=== PATIENT | female | born 1990 | race African-American/Black ===

== ENCOUNTER 2019-04-08 08:13 | Emergency (ER) | payer OTHER ==
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
--- NOTE | 2019-04-08 08:53 | ER ---
Nurse's Notes [facility] Name: Yvonne Peterson Age: 28 yrs Sex: Female : 1990 Arrival Date: 04/08/2019 Time: 08:20 Bed 6 Private MD: Diagnosis: Other slipping, tripping and stumbling and falls;Left knee abrasion, generalized muscle strain, right shoulder pain, left thigh pain Presentation: 04/08 08:32 Presenting complaint: Patient states: Slipped and fell, denies hitting head, denies jl7 hitting abdomen, reports right shoulder, groin and leg pain and left knee pain. Transition of care: patient was not received from another setting of care. Onset of symptoms was April 08, 2019. Risk Assessment: Do you want to hurt yourself or someone else? Patient reports no desire to harm self or others. Initial Sepsis Screen: Does the patient meet any 2 criteria? No. Patient's initial sepsis screen is negative. Does the patient have a suspected source of infection? No. Patient's initial sepsis screen is negative. Care prior to arrival: None. 08:32 Method Of Arrival: Ambulatory [facility] 08:32 Acuity: EVANGELINA 3 jl7 Triage Assessment: 08:33 General: Appears in no apparent distress. uncomfortable, Behavior is calm, cooperative, jl7 appropriate for age. Pain: Complains of pain in pelvis, posterior aspect of right shoulder and right leg, right side of groin and left knee Pain currently is 4 out of 10 on a pain scale. Neuro: Level of Consciousness is awake, alert, obeys commands, Oriented to person, place, time, situation. Cardiovascular: Patient's skin is warm and dry. Respiratory: Airway is patent Respiratory effort is even, unlabored, Respiratory pattern is regular, symmetrical. Derm: Skin is dry, Skin is normal, Skin temperature is cool. Musculoskeletal: Range of motion: intact in all extremities. 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 - Social history:: Smoking status: Patient/guardian denies using tobacco. - Ebola Screening: : No symptoms or risks identified at this time. Screenin:40 Abuse screen: Denies threats or abuse. Denies injuries from another. Nutritional jl7 screening: No deficits noted. Tuberculosis screening: No symptoms or risk factors identified. Fall Risk None identified. Assessment: 08:33 General: See triage assessment. jl7 08:40 Reassessment: Dr. Hewitt at bedside. jl7 Vital Signs: 08:33 BP 122 / 70; Pulse 98; Resp 16 S; Pulse Ox 100% on R/A; Weight 60.33 kg (R); Height 5 jl7 ft. 2 in. (157.48 cm) (R); Pain 4/10; 08:33 Body Mass Index 24.33 (60.33 kg, 157.48 cm) jl7 Vitals: 08:53 Heart Tones 156 bpm. jl7 ED Course: 08:20 Patient arrived in ED. mr 08:21 Rahat Hewitt MD is Attending Physician. kdr 08:26 Bettye Martell, RN is Primary Nurse. hb 08:32 Shantanu Arora, NAY is Primary Nurse. jl7 08:33 Triage completed. jl7 08:33 Arm band placed on right wrist. jl7 08:33 Patient has correct armband on for positive identification. Bed in low position. Call jl7 light in reach. Side rails up X 1. Pulse ox on. NIBP on. 08:50 Brenden Patino MD is Referral Physician. kdr 09:10 No provider procedures requiring assistance completed. Patient did not have IV access jl7 during this emergency room visit. Administered Medications: No medications were administered Outcome: 08:52 Discharge ordered by . kdr 09:10 Discharged to OB jl7 09:10 Condition: stable 09:10 Discharge instructions given to patient, family, Instructed on discharge instructions, follow up and referral plans. pt transport to L\T\D for evaluation Demonstrated understanding of instructions, follow-up care. 09:11 Patient left the ED. jl7 Signatures: Rahat Hewitt MD MD kdr Rivera, Mary mr Bettye Martell, RN RN Shantanu Arora RN RN [facility]
[2019-04-08 09:15] VITALS: BP 122/70; O2SAT 100
== END 2019-04-08 09:11 | disposition home or self-care (01) ==
LOC: ER 08:13
DX: O26.893 Other specified pregnancy related conditions, third trimester (principal); Z3A.32 32 weeks gestation of pregnancy; S80.212A Abrasion, left knee, initial encounter; T14.8XXA Other injury of unspecified body region, initial encounter; M25.511 Pain in right shoulder; M79.652 Pain in left thigh; W01.0XXA Fall on same level from slipping, tripping and stumbling without subsequent striking against object, initial encounter; Y93.89 Activity, other specified; Y92.9 Unspecified place or not applicable; Z88.0 Allergy status to penicillin
CPT/HCPCS: 99283

== ENCOUNTER 2019-05-24 22:43 | Inpatient (IN) | payer OTHER ==
[2019-05-24] MEDS ORDERED: OXYTOCIN/LR 20 UNIT/1,000 ML BAG IV SCH (23:45)
[2019-05-24] MEDS ORDERED: Ringers Lactate 1,000 ML IV SCH (23:45)
[2019-05-24] MEDS ORDERED: PROMETHAZINE 25 MG/ML VIAL IV PRN (23:59)
[2019-05-24] MEDS ORDERED: METHYLERGONOVINE 0.2MG/ML AMP IM PRN (23:59)
[2019-05-24] MEDS ORDERED: Ringers Lactate 1,000 ML IV PRN (23:59)
[2019-05-24] MEDS ORDERED: BUTORPHANOL 1 MG/ML INJ IV PRN (23:59)
[2019-05-24] MEDS ORDERED: CARBOPROST TROME 250 MCG/ML IM PRN (23:59)
[2019-05-25] MEDS ORDERED: BUTORPHANOL 1 MG/ML INJ ONE (00:04)
[2019-05-25] MEDS ORDERED: PROMETHAZINE 25 MG/ML VIAL ONE (00:04)
[2019-05-25 00:27] LABS: Absolute Lymphocytes (CBC) 1.9 K/uL (0.7-4.9); Basophils % 0.4 % (0-1.3); Hematocrit 29.2 % (36.0-45.0); Lymphocytes % 18.2 % (15.3-44.8); MPV 8.2 fL (7.6-11.3); RBC Red Blood Cell Count 3.66 M/uL (3.86-4.86)
[2019-05-25] MEDS ORDERED: LIDOCAINE 1% MPF 30 ML VIAL ONE (00:35)
[2019-05-25 00:48] VITALS: BMI 27.2
--- NOTE | 2019-05-25 00:52 | PREOPHP ---
Date of Admission: 05/24/2019 History Of Present Illness: Ms. Peterson is a 29-year-old black female, 2, para 1-0-0-1, at approximately 39 weeks gestation. She has been followed by me during this without sign ificant complaint. She presents with complaints of contractions, noted to be 3 cm on admission, with in 1 hour was 5 cm. Past Medical History: Please see record. Family History: Please see record. Review of Systems: She reports no recent cough, cold, fever, or chills. She had nausea on the way of the hospital, thre w up 1 time with a contraction discomfort. She denies any breast lumps. She denies any bowel or nils dder issues. Physical Examination: General: Reveals pleasant black female in moderate discomfort. Neck: Supple without adenopathy or thyromegaly. Lungs: Clear. Cardiac: Regular rate and rhythm without murmurs. Breasts: Not examined. Abdomen: Estimated weight of 7+ to 8 pounds. Pelvic: Cervix now noted to be vertex presentation, 5 cm dilated. Extremities: No cyanosis, clubbing, or edema. Impression: Term , active labor. Plan: Patient will be admitted for delivery. She request IV analgesia at this time. MARCIO/EZEKIEL Voice ID: [id number]
[2019-05-25 02:39] LABS: Urine Appearance CLEAR; Urine Bilirubin NEGATIVE (NEG); Urine Blood NEGATIVE (NEG); Urine Color YELLOW; Urine Glucose NEGATIVE (NEG); Urine Protein NEGATIVE (NEG); Urine pH 6.5 (5.0-7.0)
[2019-05-25 02:41] LABS: Urine Microscopic Reflex NO UMIC
[2019-05-25] MEDS ORDERED: FENTANYL CITR 100 MCG/2 ML IV ONE (02:53)
[2019-05-25] MEDS ORDERED: ROPIVACAINE HCL 100 ML IV PRN (02:53)
[2019-05-25] MEDS ORDERED: ROPIVACAINE HCL 0.2% 20ML AMP SQ ONE (02:57)
[2019-05-25] MEDS ORDERED: EPHEDRINE SULF 50 MG/ML VIAL ONE (04:07)
[2019-05-25] MEDS ORDERED: ONDANSETRON 4 MG (ODT) TAB PO PRN (05:22)
[2019-05-25] MEDS ORDERED: METHYLERGONOVINE 0.2MG/ML AMP IM PRN (05:22)
[2019-05-25] MEDS ORDERED: CARBOPROST TROME 250 MCG/ML IM PRN (05:22)
[2019-05-25] MEDS ORDERED: ACETAMINOPHEN 500 MG TAB PO PRN (05:22)
[2019-05-25] MEDS ORDERED: IBUPROFEN 200 MG TAB PO PRN (05:22)
[2019-05-25] MEDS ORDERED: METHYLERGONOVINE 0.2 MG TAB PO PRN (05:22)
--- NOTE | 2019-05-25 05:26 | P.BOP ---
Preoperative diagnosis: 39 week , labor Postoperative diagnosis: Delivery viable male infant Primary procedure: SCVD male Estimated blood loss: 300 Anesthesia: epidural Complications: None Transferred to: Other (274) Condition: Good
[2019-05-25] MEDS ORDERED: OXYTOCIN/LR 20 UNIT/1,000 ML BAG IV SCH (06:00)
[2019-05-25 23:01] LABS: RPR (Rapid Plasma Reagin) NON-REACT (NON-REACT)
--- NOTE | 2019-05-26 03:13 | DN ---
Surgeon: Brenden Patino MD Yvonne is a 29-year-old black female, 2, para 1-0-0-1, at 39 weeks' gestation, admitted in labor. She had a first stage of labor of approximately 6 hours, second stage of labor of 5 minutes, delivered by spontaneous controlled vaginal delivery with epidural anesthesia, male infant 9 and 9. After delayed cord clamping, infant was placed on mother's upper abdomen. Infant weighed 7 pounds 12 ounces. Cord blood was obtained. Placenta was spontaneously expelled, appeared to be intact. Intrauterine examination revealed no retained placental fragments. Patient suffered no perineal lacerations, received 1 mg of Stadol and 1 dose of Phenergan 12.5 mg for analgesia during her labor course prior to placement of epidural catheter. Estimated total blood loss was 300 cc. MARCIO/EZEKIEL Voice ID: [id number] Report ID: [id number] BRENDON
[2019-05-26 07:19] VITALS: BP 122/62; TEMP 97.6
--- NOTE | 2019-05-27 08:29 | DS ---
Date of Discharge: 05/26/2019 Ms. Peterson is a 29-year-old black female, 2, para 1-0-0-1, [facility] admitted in active labor. She delivered 7 pounds 12 ounce male , 9 and 9 and wa s dismissed on first day. Lab work included an admission hemoglobin and hematocrit of 9.6 and 29.2, dismissal of 26.8. She is Rh positive blood type and rubella immune. She is to continue taking her iron and vitamins, to be seen back in my office in 1 week. MARCIO/EZEKIEL Voice ID: [id number] Report ID: [id number]
[2019-05-28 02:35] LABS: HBsAG Nonreactive (Nonreactive)
== END 2019-05-26 11:20 | disposition home or self-care (01) | DRG 807 ==
LOC: L&D 22:43 → 2ND-WC 23:56
PROVIDERS: ADMIT Specialist; ATTEND Specialist
PROC: 10E0XZZ Delivery of Products of Conception, External Approach (ICD-10-PCS; principal; 2019-05-25)
PROC: 10907ZC Drainage of Amniotic Fluid, Therapeutic from Products of Conception, Via Natural or Artificial Opening (ICD-10-PCS; 2019-05-25)
DX: O80 Encounter for full-term uncomplicated delivery (principal); Z37.0 Single live birth; Z3A.39 39 weeks gestation of pregnancy; Z28.20 Immunization not carried out because of patient decision for unspecified reason
CPT/HCPCS: 36415; 81003; 85014; 85025; 86592; 86901; 87340; J0595; J2210; J2550; J2590; J2795; J3010; J7120

== ENCOUNTER 2020-06-03 20:19 | Observation (INO) | payer OTHER ==
[2020-06-03 21:42] LABS: Absolute Lymphocytes (CBC) 2.2 K/uL (0.7-4.9); Basophils % 1.2 % (0-1.3); Hematocrit 37.8 % (36.0-45.0); Lymphocytes % 26.2 % (15.3-44.8); MPV 8.4 fL (7.6-11.3); RBC Red Blood Cell Count 4.35 M/uL (3.86-4.86)
[2020-06-03 21:48] LABS: Urine Blood NEGATIVE (NEG); Urine Glucose NEGATIVE (NEG); Urine Protein NEGATIVE (NEG); Urine Specific Gravity 1.015 (1.005-1.030)
[2020-06-03 21:48] LABS: Protime INR 0.96
[2020-06-03 21:56] LABS: BUN Blood Urea Nitrogen 11 mg/dL (7-18); Bicarbonate 26 mmol/L (21-32); Glucose Level 93 mg/dL (74-106); Potassium 3.7 mmol/L (3.5-5.1); Sodium Level 140 mmol/L (136-145)
[2020-06-03 22:02] LABS: Barbiturates NEGATIVE (NEGATIVE); Benzodiazepines NEGATIVE (NEGATIVE); Cocaine NEGATIVE (NEGATIVE); METHAMPHETAM NEGATIVE (NEGATIVE); Methadone NEGATIVE (NEGATIVE); Opiates NEGATIVE (NEGATIVE); Phencyclidine NEGATIVE (NEGATIVE); THC Cannibis NEGATIVE (NEGATIVE)
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
--- NOTE | 2020-06-03 22:25 | ER ---
Nurse's Notes [facility] Name: Yvonne Peterson Age: 30 yrs Sex: Female : 1990 Arrival Date: 06/03/2020 Time: 20:21 Bed 18 Private MD: Gerson Barry Diagnosis: Cerebral Vascular Accident Presentation: 06/03 20:40 Acuity: EVANGELINA 3 sg 20:40 Method Of Arrival: Ambulatory sg 20:40 Chief complaint: Spouse and/or significant other states: Shes just not been feeling sg good, worse today. She gets really dizzy when she gets up, and shes barely able to walk. She just says shes not feeling good, doesn't feel normal. Denies N/V unsure of any fever at home, reports feeling chills. Coronavirus screen: Client denies travel out of the [place] in the last 14 days. At this time, the client does not indicate any symptoms associated with coronavirus-19. Ebola Screen: Patient negative for fever greater than or equal to 101.5 degrees Fahrenheit, and additional compatible Ebola Virus Disease symptoms Patient denies exposure to infectious person. Patient denies travel to an Ebola-affected area in the 21 days before illness onset. No symptoms or risks identified at this time. Initial Sepsis Screen: Does the patient meet any 2 criteria? HR > 90 bpm. No. Patient's initial sepsis screen is negative. Does the patient have a suspected source of infection? No. Patient's initial sepsis screen is negative. Risk Assessment: Do you want to hurt yourself or someone else? Patient reports no desire to harm self or others. Onset of symptoms was June 03, 2020. Care prior to arrival: None. Mechanism of Injury: No Mechanism of Injury. Transition of care: patient was not received from another setting of care. Triage Assessment: 20:42 General: Appears in no apparent distress. comfortable, well groomed, well developed, sg well nourished, Behavior is cooperative, quiet. Pain: Denies pain. Neuro: Level of Consciousness is awake, alert, obeys commands, Oriented to person, place, situation, Speech is normal, slow to respond. Neuro: Reports tingling to bilateral feet. Respiratory: Airway is patent Respiratory effort is even, unlabored, Respiratory pattern is regular, symmetrical. Derm: Skin is intact, is healthy with good turgor, Skin is dry, Skin is normal, Skin temperature is warm. Musculoskeletal: Circulation, motion, and sensation intact. Range of motion: intact in all extremities. 21:50 General: Appears comfortable, Behavior is calm, cooperative. Pain: Denies pain. 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 - Social history:: Smoking status: Patient denies any tobacco usage or history of. Screenin:50 Abuse screen: Denies threats or abuse. Denies injuries from another. Nutritional rv screening: No deficits noted. Tuberculosis screening: No symptoms or risk factors identified. Fall Risk None identified. Assessment: 06/04 00:20 Reassessment: FAMILY AND PATIENT UPDATED. AWAITING CALL BACK FROM [address] [place] [address]. rv Vital Signs: 06/03 21:47 BP 128 / 82; Pulse 79; Resp 17; Temp 98.3; Pulse Ox 100% ; Weight 60.06 kg (M); rv 06/04 00:19 BP 111 / 72; Pulse 70; Resp 16; Temp 98; Pulse Ox 99% on R/A; rv Chandrika Coma Score: 00:19 Eye Response: spontaneous(4). Verbal Response: oriented(5). Motor Response: obeys rv commands(6). Total: 15. NIH Stroke Scale Scores: 06/03 21:45 NIHSS Score: 2 rv 22:14 NIHSS Score: 2 7 ED Course: 20:21 Patient arrived in ED. ag5 20:21 Gerson Barry MD is Private Physician. ag5 20:27 Renaldo Peng MD is Attending Physician. mh7 20:40 Triage completed. sg 20:40 Arm band placed on. sg 21:00 Tyrone Benito, NAY is Primary Nurse. rv 21:28 CT Stroke Brain w/o Contrast In Process Unspecified. EDMS 21:34 Stroke CXR 1 View In Process Unspecified. EDMS 21:40 Inserted saline lock: 20 gauge in right antecubital area, using aseptic technique. rv Blood collected. 21:40 Initial lab(s) drawn, by ca, sent to lab. rv 21:50 Patient has correct armband on for positive identification. Pulse ox on. NIBP on. rv 22:23 Mayo Rosales DO is Hospitalizing Provider. [facility] 06/04 00:20 No provider procedures requiring assistance completed. IV is patent, with fluids rv infusing freely, Patient admitted, IV remains in place. Administered Medications: 06/03 22:48 Drug: Aspirin Chewable Tablet 324 mg Route: PO; rv 06/04 00:22 Follow up: Response: No adverse reaction rv 06/03 22:48 Drug: foLIC Acid 1 mg Route: PO; rv 06/04 00:21 Follow up: Response: No adverse reaction rv Outcome: 06/03 22:25 Decision to Hospitalize by Provider. [facility] 06/04 00:20 Admitted to Med/surg accompanied by nurse, via wheelchair, room 221, Other SBAR, EKG rv Report called to ELSIE TEE Condition: good Instructed on the need for admit. 00:32 Patient left the ED. rv NIH Stroke Scale - NIH Stroke Score Date: 06/03/2020 Time: 21:45 Total Score = 2 1a. Level of Consciousness (LOC) - 0(Alert) 1b. Level of Consciousness (LOC) (Year \T\ Age) - 0(Both) 1c. LOC Commands (Open \T\ Closes Eyes/Deburrer) - 0(Both) 2. Best Gaze (Lateral Gaze Paresis) - 0(Normal) 3. Visual Field Loss - 0(No visual loss) 4. Facial Palsy - 0(Normal) 5a. Left Arm: Motor (10-second hold) - 0(No drift) 5b. Right Arm: Motor (10-second hold) - 0(No drift) 6a. Left Leg: Motor (5-second hold - always test supine) - 1(Drift) 6b. Right Leg: Motor (5-second hold - always test supine) - 0(No drift) 7. Limb Ataxia (finger/nose \T\ heel/sarabia - test with eyes open) - 0(Absent) 8. Sensory Loss (pinprick arms/legs/face) - 1(Mild to moderate loss) 9. Best Language: Aphasia (description/naming/reading) - 0(No aphasia) 10. Dysarthria (speech clarity - read or repeat words) - 0(Normal) 11. Extinction and Inattention (visual/tactile/auditory/spatial/personal) - 0(No abnormality) Initials: andrew NIH Stroke Scale - NIH Stroke Score Date: 06/03/2020 Time: 22:14 Total Score = 2 1a. Level of Consciousness (LOC) - 0(Alert) 1b. Level of Consciousness (LOC) (Year \T\ Age) - 0(Both) 1c. LOC Commands (Open \T\ Closes Eyes/Deburrer) - 0(Both) 2. Best Gaze (Lateral Gaze Paresis) - 0(Normal) 3. Visual Field Loss - 0(No visual loss) 4. Facial Palsy - 0(Normal) 5a. Left Arm: Motor (10-second hold) - 0(No drift) 5b. Right Arm: Motor (10-second hold) - 0(No drift) 6a. Left Leg: Motor (5-second hold - always test supine) - 0(No drift) 6b. Right Leg: Motor (5-second hold - always test supine) - 0(No drift) 7. Limb Ataxia (finger/nose \T\ heel/sarabia - test with eyes open) - 1(Present in one limb) 8. Sensory Loss (pinprick arms/legs/face) - 1(Mild to moderate loss) 9. Best Language: Aphasia (description/naming/reading) - 0(No aphasia) 10. Dysarthria (speech clarity - read or repeat words) - 0(Normal) 11. Extinction and Inattention (visual/tactile/auditory/spatial/personal) - 0(No abnormality) Initials: [facility] Signatures: Dispatcher [employer] Kris Cordero RN RN Tyrone Benito RN RN rv [place], Ajare 5 Renaldo Peng MD MD [facility]
[2020-06-03] MEDS ORDERED: FOLIC ACID 1 MG TABLET ONE (22:53)
[2020-06-03] MEDS ORDERED: ASPIRIN 81 MG CHEWABLE TABLET ONE (22:53)
--- NOTE | 2020-06-03 23:57 | P.HP ---
Certification for Inpatient Patient admitted to: Observation With expected LOS: <2 Midnights Patient will require the following post-hospital care: None Practitioner: I am a practitioner with admitting privileges, knowledge of patient current condition, hospital course, and medical plan of care. Services: Services provided to patient in accordance with Admission requirements found in Title 42 Section 412.3 of the Code of Federal Regulations <Marlo Hicks - Last Filed: 06/03/20 23:52> Patient admitted to: Observation <Mayo Rosales - Last Filed: 06/04/20 08:49> Patient History Date of Service: 06/03/20 Primary Care Provider: Dr. Barry Reason for admission: TIA/CVA History of Present Illness: 30-year-old Afro-Chinese female with no significant past medical history reports that around 1700 today she was driving her car when she had an episode where she felt like she may have lost consciousness and woke up in another [place]. Patient reports that she has also Feeling funny and having trouble verbally responding to her daughter. Patient reports that she called her mother on the phone who also noticed that her speech was different, slowed, seemed like she is having trouble coming up with the words. Patient made it back to her house where her also noticed these changes and brought her to the emergency department. Upon arrival to the emergency department code stroke was called and patient was taken for stat CT head. CT head was without acute findings, patient was outside the window for t-PA. Exam in the emergency department patient was noted to have mild left lower extremity drift and some borderline sensory changes which she stated has improved the last few hr of numbness to the left arm and leg. Labs unremarkable. ED provider discuss case with neurology who wishes to keep patient in the hospital for further evaluation and management. When I saw the patient in the emergency department she is awake, alert, oriented x3. Speech had improved greatly and was about back at baseline per family. Patient upper extremities equal and strong, questionable mild drift of the left lower extremity, sensation equal bilaterally. Patient passed swallow screen and was given aspirin and folic acid in the emergency department, patient will be admitted for further evaluation and management. - Past Medical/Surgical History -: none -: NVD 06/2012 Psychosocial/ Personal History: Patient lives at home with her and family - Family History Mother -: Lung disease - Social History Smoking Status: Never smoker Alcohol use: Yes CD- Drugs: No Caffeine use: No Place of Residence: Home <Marlo Hicks - Last Filed: 06/03/20 23:52> Date of Service: 06/04/20 Home medications list reviewed: Yes - Past Medical/Surgical History Diabetic: No <Mayo Rosales - Last Filed: 06/04/20 08:49> Allergies Penicillins Allergy (Mild, Verified 07/04/12 19:52) Rash Review of Systems 10-point ROS is otherwise unremarkable Neurological: Weakness, Numbness, Change in Speech, As per HPI <Marlo Hicks - Last Filed: 06/03/20 23:52> Physical Examination - Physical Exam General: Alert, In no apparent distress, Oriented x3 HEENT: Atraumatic, Normocephalic, PERRLA, Mucous membr. moist/pink Neck: Supple Respiratory: Clear to auscultation bilaterally, Normal air movement Cardiovascular: Regular rate/rhythm, Normal S1 S2 Capillary refill: <2 Seconds Gastrointestinal: Normal bowel sounds Musculoskeletal: No contractures, No erythema, No tenderness Integumentary: No significant lesion, No tenderness/swelling, No erythema Neurological: Normal gait, Normal speech, Normal tone, Sensation intact, Cranial nerves 3-12 intact, Normal affect, Abnormal strength (Mild left lower extremity drifting) - Studies Laboratory Data (last 24 hrs) 06/03/20 21:30: PT 11.3, INR 0.96, APTT 25.7 06/03/20 21:30: WBC 8.3, Hgb 12.6, Hct 37.8, Plt Count 342 06/03/20 21:30: Sodium 140, Potassium 3.7, BUN 11, Creatinine 0.87, Glucose 93 <Marlo Hicks - Last Filed: 06/03/20 23:52> - Studies Laboratory Data (last 24 hrs) 06/03/20 21:30: PT 11.3, INR 0.96, APTT 25.7 06/03/20 21:30: WBC 8.3, Hgb 12.6, Hct 37.8, Plt Count 342 06/03/20 21:30: Sodium 140, Potassium 3.7, BUN 11, Creatinine 0.87, Glucose 93 <Mayo Rosales - Last Filed: 06/04/20 08:49> Assessment and Plan - Plan Assessment Ischemic CVA vs. TIA Plan Ischemic CVA vs. TIA: Admit on telemetry floor. Daily aspirin, statin, folic acid. Check lipid panel, A1c, thyroid panel with morning labs. Q.4h neuro checks. Physical and speech therapy evaluation, neurology evaluation. DVT prophylaxis Lovenox 40 mg subcutaneous once daily. Discharge Plan: Home Plan to discharge in: 24 Hours - Advance Directives Does patient have a Living Will: No Does patient have a Durable POA for Healthcare: No - Code Status/Comfort Care Code Status Assessed: Yes Critical Care: No Time Spent Managing Pts Care (In Minutes): 55 <Marlo Hicks - Last Filed: 06/03/20 23:52> - Plan Case discussed in detail with nurse practitioner. Agree with evaluation, assessment and plan of care. Patient reported chronic headaches. Suspect migraine headache. Suspect left-sided paresthesias related to migraine- sequelae. Await neurology evaluation. Not able to perform MRI, echocardiogram today. Patient may be able to be discharged with follow up with neurology as soon as Saturday along with MRI, echocardiogram with bubble study, and carotid Doppler. Await recommendations by Neurology. Please see progress note for details. <Mayo Rosales - Last Filed: 06/04/20 08:49>
[2020-06-04 01:12] VITALS: O2SAT 100; BMI 24.5
[2020-06-04] MEDS ORDERED: ACETAMINOPHEN 500 MG TAB PO PRN (01:13)
[2020-06-04] MEDS ORDERED: ONDANSETRON 4 MG/2 ML VIAL IV PRN (01:13)
[2020-06-04] MEDS ORDERED: MELATONIN 5 MG TABLET PO PRN (01:13)
[2020-06-04 05:50] LABS: Absolute Lymphocytes (CBC) 2.5 K/uL (0.7-4.9); Hematocrit 35.7 % (36.0-45.0); MPV 8.5 fL (7.6-11.3); RBC Red Blood Cell Count 4.11 M/uL (3.86-4.86)
[2020-06-04 06:12] LABS: BUN Blood Urea Nitrogen 10 mg/dL (7-18); Bicarbonate 25 mmol/L (21-32); Glucose Level 89 mg/dL (74-106); HDL Cholesterol 64 mg/dL (40-60); LDL Cholesterol, Calculated 122 (<130); Magnesium 2.1 mg/dL (1.8-2.4); Potassium 3.7 mmol/L (3.5-5.1); Sodium Level 141 mmol/L (136-145)
[2020-06-04] MEDS: ENOXAPARIN 40 MG/0.4 ML SQ SCH (08:49)
[2020-06-04] MEDS: FOLIC ACID 1 MG TABLET PO SCH (08:50)
[2020-06-04] MEDS: ASPIRIN EC 81 MG TAB PO SCH (08:50)
--- NOTE | 2020-06-04 08:56 | P.PN ---
Subjective Date of Service: 06/04/20 Primary Care Provider: Dr. Barry Chief Complaint: TIA/CVA Subjective: Improving (No further weakness to the left side. Patient still reports some numbness) Physical Examination - Vital Signs Temperature: 97.5 F Blood Pressure: 109/64 Pulse: 67 Respirations: 18 Pulse Ox (%): 100 - Physical Exam General: Alert, In no apparent distress, Oriented x3, Cooperative HEENT: Atraumatic, Mucous membr. moist/pink Neck: Supple Respiratory: Clear to auscultation bilaterally, Normal air movement Cardiovascular: Normal pulses, Regular rate/rhythm Gastrointestinal: Normal bowel sounds, Soft and benign, Non-distended, No masses, No rebound, No guarding Neurological: Normal speech, Normal strength at 5/5 x4 extr, Normal tone, Normal affect, Other (no significant numbness. Some mild numbess to the left lower ext when walking. ) - Studies Laboratory Data (last 24 hrs) 06/03/20 21:30: PT 11.3, INR 0.96, APTT 25.7 06/03/20 21:30: WBC 8.3, Hgb 12.6, Hct 37.8, Plt Count 342 06/03/20 21:30: Sodium 140, Potassium 3.7, BUN 11, Creatinine 0.87, Glucose 93 Medications List Reviewed: Yes Assessment & Plan Discharge Plan: Home Plan to discharge in: 24 Hours Physician Review Additional Text: Impression: Left-sided paresthesia with history of chronic headache suspect migraine headache related versus TIA Mitral regurgitation Hyperlipidemia Plan: Left-sided paresthesia with history of chronic headache suspect migraine headache related versus TIA: Patient reports recent history of chronic headaches over the last year. Patient describes migraine related headaches. This may be a sequelae of her symptoms. Need to rule out TIA. Not able to do MRI, echocardiogram over the weekend. Anticipate possible discharge with aspirin, folic acid and statin medication. Consider MRI stroke protocol brain, echocardiogram and carotid Doppler on Saturday with close follow-up. Will discuss case further with Neurology after his evaluation. Await recommendation.Patient may also require medication for migraine headaches. Await Neurology recommendations. Mitral regurgitation: Patient reports history of mitral regurgitation. Seen by Cardiology in the past with Holter monitor is well. Will need to repeat echocardiogram with bubble study. This can possibly be done as an outpatient. Await evaluation by neurology. Hyperlipidemia: Total cholesterol slightly elevated. LDL 122. HDL 64. Patient on statin medication. Await recommendations by Neurology. Time Spent Managing Pts Care (In Minutes): 55
[2020-06-04] MEDS ORDERED: POTASSIUM CL SA 10 MEQ TAB PO ONE (09:00)
--- NOTE | 2020-06-04 09:27 | RAD REPORT ---
EXAM DESCRIPTION: RAD - Chest Single View - 06/03/2020 9:34 pm CLINICAL HISTORY: possible CVA, Stroke protocol chest film TECHNIQUE: AP portable chest image was obtained 06/03/2020 9:34 pm . FINDINGS: Lungs are clear. Heart and vasculature are normal. No measurable pleural effusion and no p neumothorax. No acute bony abnormality seen. No acute aortic findings suspected. IMPRESSION: No acute cardiopulmonary process.
[2020-06-04] MEDS ORDERED: INFLUENZA VACCINE (for 3y+) 0.5 ML DOSE IMVAC ONE (12:00)
--- NOTE | 2020-06-04 17:48 | RAD REPORT ---
EXAM DESCRIPTION: CT - Ct Stroke Brain Wo Cont - 06/04/2020 8:36 am ADDENDUM #1 Addendum: I discussed these critical findings with Dr. Peng on 06/03/2020 at 2145 hours central slick pedro Electronically signed by: Armani Swanson 06/04/2020 4:10 PM [employer] End of Addendum EXAM DESCRIPTION: Ct Stroke Brain Wo Cont CLINICAL HISTORY: Numbness/tingling;Aphasia;Dizziness COMPARISON: None Available TECHNIQUE: Contiguous axial CT images of the head were obtained. Coronal and sagittal reconstructions were created from the axial data. This exam was performed according to our departmental dose-optimization program, which includes autom ated exposure control, adjustment of the mA and/or kV according to patient size and/or use of iterati ve reconstruction technique. FINDINGS: There is no evidence of acute mass, mass effect, midline shift or hemorrhage. The ventricl es and extra-axial CSF spaces are unremarkable. The brain parenchyma appears normal for the patient's age. No acute abnormalities of the bones is seen. IMPRESSION: No acute intracranial abnormality. Electronically signed by: Armani Swanson 06/03/2020 9:36 PM [employer]ING ENGINEER Due to temporary technical issues with the PACS/Fluency reporting system, reports are being signed by the in house radiologists without review as a courtesy to insure prompt reporting. The interpreting radiologist is fully responsible for the content of the report.
--- NOTE | 2020-06-04 18:48 | CON ---
Reason For Consultation: Consulted called by Dr. Rosales because of possible stroke versus TIA. History Of Present Illness: Ms. Peterson is a 30-year-old right-handed patient with no clear known past medical history until recent diagnosis of dyslipidemia with elevated LDL. Yesterday evening around 5, she was driving home when she suddenly felt funny at head and apparently lost cons ciousness and woke up in another [place]. She had her children in the car. She was very scared and carl ve home. She apparently had slurred speech and was somewhat disoriented. She was brought into [facility], had head CT scan that was negative, blood work was negative. She said she did not porter ve any tongue biting or loss of bowel or bladder control. She was admitted for stroke workup. Due t o the absence of MRI, she did not have the MRI, but she was admitted for possible MRI on Saturday. Lab oratory studies showed a normal complete blood count with differential, normal coagulation panel. Ch emistries remarkable for very slightly elevated chloride, otherwise normal, and her panel of choleste rol showed a total cholesterol 211, LDL cholesterol 122, and HDL cholesterol was 64. TSH normal. Ur inalysis showed trace esterase and urine drug screen was negative. She was placed on aspirin 81 mg, Lipitor 40 mg at bedtime, folic acid 1 mg daily, and DVT prophylaxis with Lovenox 40 mg subcutaneousl y daily, and she had melatonin for sleep. The patient states she does have a history of headaches and she however is not clear if she had a hea dache during this period. Her mother does have headaches. The mother was in the room and provided i nformation, but she could not clearly length the episode with headache. Past Medical History: As indicated. She did have a normal baby born by vaginal delivery on 06/2012 and year ago, she had an epidural for her last child. Social History: Occasional alcohol use, but no IV drugs or smoking. Family History: Positive for migraines in mother, lung disease in mother. Allergies: PENICILLIN. Medications: As indicated above. Review of Systems: She denies any recent fevers or chills, nausea, vomiting, myalgias, arthralgias, rash, headache, weig ht change. No psychiatric issues or gastrointestinal issues aside from mentioned with migraines. Khanh quezada does have some lower back pain. 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 She did get up and ambulate to the bathroom and had no dif ficulty there. Physical Examination: Vital Signs: Blood pressure 109/62, pulse 67 to 92, respiratory rate 16 to 20, temperature 97.9, oxy gen saturation 99%. Weight 134 pounds, height 5 feet 2 inches, BMI 24.5. General: Ms. Russell is resting in bed. She is in no acute distress. HEENT: She is normocephalic, atraumatic. Sclerae anicteric. Oropharynx is pink and moist. Neck: Supple. Chest: Clear. Heart: Regular. Extremities: No edema, cyanosis, or clubbing. Neurologic: Alert, oriented to person, place, time, and situation. She follows all commands appropr iately. Cranial nerves 2 through 12 are intact by exam. Motor examination intact in the upper and l ower extremities proximally and distally with 5/5 strength. Sensory exam intact to light touch, pinp khoi, and temperature in the arms and legs. Coordination intact in upper and lower extremities. She has good stance and stride. Assessment: Ms. Peterson is a 30-year-old patient with a paroxysmal episode of apparent loss of consciou sness. There were some left-sided facial tingling and numbness associated, but that all resolved wit hin about 12 to 14 hours. Her differential diagnosis includes complicated migraine, complex partial seizures, and transient ischemic attack. Plan: 1.Brain MRI with MRA on Saturday, MRA of head and neck. 2.Routine electroencephalogram. 3.Folic acid 1 mg daily, Lipitor as indicated 4 mg daily, aspirin 81 mg daily, and make sure that khanh quezada is well hydrated. She is told to drink 8 to 10 glasses of water daily. 4.She is told about regular exercise, at least 30 minutes of brisk activity on a daily basis. 5.Once the studies are done, she may be discharged home and follow up with Dr. Pfeiffer in clinic 1 month later. VIK/EZEKIEL Voice ID: [id number] Report ID: [id number]
[2020-06-04] MEDS: ATORVASTATIN 40 MG TAB PO SCH (20:49)
--- NOTE | 2020-06-05 07:44 | EKG ---
Test Date: 2020-06-03 Test Time: 21:37:00 [employer] Caretaker: RV MEASUREMENT RESULTS: Intervals: Rate: 92 MD: 126 QRSD: 86 QT: 358 QTc: 442 Elmo: P: 63 MD: 126 QRS: 66 T: 29 INTERPRETIVE STATEMENTS: Normal sinus rhythm Normal ECG No previous ECG available for comparison Electronically Signed On 06-05-20 07:40:53 HEAD OF [employer]ALENT MANAGEMENT by Chepe Rascon
[2020-06-05] MEDS: FOLIC ACID 1 MG TABLET PO SCH (08:10)
[2020-06-05] MEDS: ASPIRIN EC 81 MG TAB PO SCH (08:10)
[2020-06-05] MEDS: ENOXAPARIN 40 MG/0.4 ML SQ SCH (08:10)
--- NOTE | 2020-06-05 09:03 | P.PN ---
Subjective Date of Service: 06/05/20 Primary Care Provider: Dr. Barry Chief Complaint: TIA/CVA Subjective: Other (Further history obtained. Patient had reported loss of consciousness. Since yesterday numbness to the left side has improved. Still with some mild numbness to the left lower extremity. She reports some improvement with ataxia as well.) Physical Examination - Vital Signs Temperature: 97 F Blood Pressure: 114/67 Pulse: 76 Respirations: 20 Pulse Ox (%): 100 - Physical Exam General: Alert, In no apparent distress, Oriented x3, Cooperative HEENT: Atraumatic Neck: Supple Respiratory: Clear to auscultation bilaterally, Normal air movement Cardiovascular: Normal pulses, Regular rate/rhythm Gastrointestinal: Normal bowel sounds, No tenderness, No masses, No rebound, No guarding Musculoskeletal: No erythema, No tenderness, No warmth Neurological: Normal speech, Normal strength at 5/5 x4 extr, Normal tone, Other (Numbness to the lower extremity when walking. Ataxia is less today. Sensation improved.) - Studies Medications List Reviewed: Yes Assessment & Plan Discharge Plan: Home Plan to discharge in: 24 Hours Physician Review Additional Text: Impression: Loss of consciousness, Left-sided paresthesia, ataxia with history of chronic headache,, needs further inpatient workup to rule out CVA/TIA versus seizure disorder versus complex migraine Mitral regurgitation Hyperlipidemia Plan: Loss of consciousness, Left-sided paresthesia, ataxia with history of chronic headache: Case discussed with Neurology. No loss of conscious is noted Overnite. Left-sided paresthesia improved. Still with minimal ataxia and paresthesia to the left lower extremity when walking. Will continue with physical therapy as recommended by a neurology patient needs to complete inpatient workup with EEG, stroke protocol MRI, echocardiogram with bubble study and carotid Doppler. Will continue with aspirin, folic acid and statin medication. Await further recommendations from Neurology after workup. I will turn the service over to the hospitalist team tomorrow. I will go over plan of care with him. Mitral regurgitation: Patient reports history of mitral regurgitation. Seen by Cardiology in the past with Holter monitor is well. Will try to obtain records from cardiology. Will need to repeat echocardiogram with bubble study. Continue with Neurology recommendations. Hyperlipidemia: Total cholesterol slightly elevated. LDL 122. HDL 64. Patient on statin medication. Continue with Neurology recommendations.
--- NOTE | 2020-06-05 11:58 | RAD REPORT ---
EXAM DESCRIPTION: USCarotid Artery Cvfvakxaj99/15/2020 11:14 am CLINICAL HISTORY: Left-sided numbness COMPARISON: None FINDINGS: The velocity of the right internal carotid artery equals 125 cm/sec. The right ICA/CCA rat io 1. The velocity of the left internal carotid artery equals 127 cm/sec. The left ICA/CCA ratio 1. Plaque is not visualized within the carotid arteries The vertebral arteries demonstrate antegrade flow IMPRESSION: Unremarkable exam NASCET criteria used. Mild 0-49% stenosis Moderate 50-69% stenosis Severe 70-99% stenosis
[2020-06-05] MEDS: ATORVASTATIN 40 MG TAB PO SCH (21:11)
[2020-06-06] MEDS: ENOXAPARIN 40 MG/0.4 ML SQ SCH (08:20)
[2020-06-06] MEDS: FOLIC ACID 1 MG TABLET PO SCH (08:20)
[2020-06-06] MEDS: ASPIRIN EC 81 MG TAB PO SCH (08:20)
--- NOTE | 2020-06-06 13:38 | RAD REPORT ---
EXAM DESCRIPTION: MRI - Brain Wo Cont - 06/06/2020 12:22 pm CLINICAL HISTORY: LOSS OF CONSCIOUSNESS, ATAXIA COMPARISON: CT June 03, 2020 TECHNIQUE: Axial, sagittal, and coronal magnetic images of the brain were obtained. Contrast was not requested FINDINGS: No abnormal signal is present within the brain. Diffusion-weighted/ADC mapping does not reveal evidence of acute infarction. The ventricles are normal caliber. An extra-axial fluid collection is not present Fluid within the sinuses/mastoids is not noted. Chronic maxillary and ethmoid sinusitis. IMPRESSION: No acute abnormality is displayed
--- NOTE | 2020-06-06 14:04 | RAD REPORT ---
EXAM DESCRIPTION: MRI - MRA Head Wo Cont - 06/06/2020 1:40 pm CLINICAL HISTORY: Ataxia, left-sided numbness COMPARISON: None. TECHNIQUE: Magnetic resonance angiogram was performed. 3D MIPS reconstruction performed FINDINGS: The anterior cerebral, middle cerebral, posterior cerebral, distal internal carotid and ba silar arteries do not demonstrate a significant stenosis. An aneurysm is not displayed. IMPRESSION: Unremarkable MRA brain.
[2020-06-06 17:20] VITALS: BP 100/63; TEMP 98.1
--- NOTE | 2020-06-06 22:34 | PN ---
Subjective: Ms. Peterson is resting comfortably in the room. She is in no acute distress. She denies a ny focal neurological issues such as weakness of the face, arm, or leg. No seizure-like activity and no complaints. Objective: Vital Signs: Blood pressure 100/63, pulse 82, respiratory rate 16, temperature 98.1, oxy gen saturation 100% on room air. General: Ms. Peterson is resting comfortably. She has no focal neurological deficits. Laboratory Studies: All essentially unremarkable from yesterday and 2 days ago. Her COVID-19 is neg ative. Her brain MRI with MRA are unremarkable. Carotid artery ultrasound unremarkable. Assessment: Ms. Peterson is a 30-year-old patient with possible transient ischemic attack versus a possi ble localization-related seizure. All of her workup is negative. Plan: She may be discharged home and follow up in Dr. Pfeiffer's clinic in 1 month. She will have E EG reviewed at that time. She should maintain a diary of any possible seizure-like activity. Also m ay continue aspirin 81 mg daily, Lipitor 40 mg at bedtime, folic acid 1 mg daily. VIK/EZEKIEL Voice ID: [id number] Report ID: [id number]
--- NOTE | 2020-06-07 07:25 | ECHO ---
HEIGHT: 5 ft 2 in WEIGHT: 134 lb 2 oz DATE OF STUDY: 06/06/[address]: Mayo Rosales DO 2-DIMENSIONAL: YES M.MODE: YES DOPPLER: YES COLOR FLOW: YES TDS: PORTABLE: DEFINITY: BUBBLE STUDY: DIAGNOSIS: LOSS OF CONSCIOUSNESS, ATAXIA, LEFT PARESTHESIA CARDIAC HISTORY: CATHERIZATION: SURGERY: PROSTHETIC VALVE: PACEMAKER: MEASUREMENTS (cm) DIASTOLIC (NORMALS) SYSTOLIC (NORMALS) IVSd 0.6 (0.6-1.2) LA Diam 2.0 (1.9-4.0) LVEF 71% LVIDd 3.7 (3.5-5.7) LVIDs 2.2 (2.0-3.5) %FS 40% LVPWd 0.8 (0.6-1.2) Ao Diam 2.2 (2.0-3.7) 2 DIMENSIONAL ASSESSMENT: RIGHT ATRIUM: NORMAL LEFT ATRIUM: NORMAL RIGHT VENTRICLE: NORMAL LEFT VENTRICLE: NORMAL TRICUSPID VALVE: MILD TRICUPSID REGURGITATION MITRAL VALVE: NORMAL PULMONIC VALVE: NORMAL AORTIC VALVE: NORMAL PERICARDIAL EFFUSION: NONE AORTIC ROOT: NORMAL LEFT VENTRICULAR WALL MOTION: NORMAL DOPPLER/COLOR FLOW: NORMAL COMMENTS: NORMAL LEFT VENTRICULAR EJECTION FRACTION 60-65% WITH NORMAL WALL MOTION. MILD TRICUSPID REGURGITATION. TECHNOLOGIST: ALTON EL
--- NOTE | 2020-06-14 01:13 | P.DS ---
Discharge Date: 06/06/20 Primary Care Provider: Dr. Barry Disposition: ROUTINE DISCHARGE Discharge Condition: GOOD Reason for Admission: TIA/CVA Consultations: Neurology Brief History of Present Illness: Patient is a 30-year-old Afro-[place]in[place] female with no significant past medical history reports that around 1700 today she was driving her car when she had an episode where she felt like she may have lost consciousness and woke up in another [place]. Patient reports that she has also Feeling funny and having trouble verbally responding to her daughter. Patient reports that she called her mother on the phone who also noticed that her speech was different, slowed, seemed like she is having trouble coming up with the words. Patient made it back to her house where her also noticed these changes and brought her to the emergency department. Upon arrival to the emergency department code stroke was called and patient was taken for stat CT head. CT head was without acute findings, patient was outside the window for t-PA. Exam in the emergency department patient was noted to have mild left lower extremity drift and some borderline sensory changes which she stated has improved the last few hr of numbness to the left arm and leg. Labs unremarkable. ED provider discuss case with neurology who wishes to keep patient in the hospital for further evaluation and management. When I saw the patient in the emergency department she is awake, alert, oriented x3. Speech had improved greatly and was about back at baseline per family. Patient upper extremities equal and strong, questionable mild drift of the left lower extremity, sensation equal bilaterally. Patient passed swallow screen and was given aspirin and folic acid in the emergency department, patient will be admitted for further evaluation and management. Hospital Course: Patient's workup has been unremarkable. MRI of the brain was negative. EKG did not reveal any epileptiform discharges. Echocardiogram was negative. Patient was advised to keep a journal to monitor any further seizure activity. Patient was also advised to not do any high-risk activity. At this time, patient is stable for discharge with outpatient followup. Vital Signs/Physical Exam: Temp Pulse Resp BP Pulse Ox 98.1 F 82 17 100/63 100 06/06/20 16:00 06/06/20 16:00 06/06/20 16:00 06/06/20 16:00 06/06/20 16:00 General: Alert, In no apparent distress, Oriented x3 Laboratory Data at Discharge: WBC 7.5 K/uL (4.3-10.9) 06/04/20 05:18 Hgb 11.9 g/dL (12.0-15.0) L 06/04/20 05:18 Hct 35.7 % (36.0-45.0) L 06/04/20 05:18 Plt Count 333 K/uL (152-406) 06/04/20 05:18 PT 11.3 SECONDS (9.5-12.5) 06/03/20 21:30 INR 0.96 06/03/20 21:30 APTT 25.7 SECONDS (24.3-36.9) 06/03/20 21:30 Sodium 141 mmol/L (136-145) 06/04/20 05:18 Potassium 3.7 mmol/L (3.5-5.1) 06/04/20 05:18 BUN 10 mg/dL (7-18) 06/04/20 05:18 Creatinine 0.86 mg/dL (0.55-1.3) 06/04/20 05:18 Glucose 89 mg/dL (74-106) 06/04/20 05:18 Magnesium 2.1 mg/dL (1.8-2.4) 06/04/20 05:18 Triglycerides 124 mg/dL (<150) 06/04/20 05:18 Cholesterol 211 mg/dL (<200) H 06/04/20 05:18 HDL Cholesterol 64 mg/dL (40-60) H 06/04/20 05:18 Cholesterol/HDL Ratio 3.30 06/04/20 05:18 Home Medications: NK [No Home Meds] 06/05/20 Patient Discharge Instructions: OK TO DC IV AND DC HOME. FOLLOW-UP WITH PRIMARY CARE PROVIDER IN 1-2 WEEKS. FOLLOW-UP WITH CARDIOLOGY IN 1-2 WEEKS. RETURN TO THE ER IF. CALL or TEXT DR. PARTIDA AT [phone] IF ANY QUESTIONS REGARDING HOSPITAL STAY. PLEASE CALL THE FLOOR AT [phone] IF ANY MEDICATION OR NURSING QUESTIONS. Followup: Chepe Rascon MD [ACTIVE - CAN ADMIT] - Benjamin Pfeiffer MD [ASSOCIATE-ACTIVE - CAN ADMIT] - Gerson Barry MD [Primary Care Provider] - Time spent managing pt's care (in minutes): 35
== END 2020-06-06 18:43 | disposition home or self-care (01) ==
LOC: ER 20:19 → 2ND 06-04 00:28
PROVIDERS: ADMIT Family Medicine; ATTEND Hospitalist
DX: R55 Syncope and collapse (principal); R20.2 Paresthesia of skin; R51.9 Headache, unspecified; I34.0 Nonrheumatic mitral (valve) insufficiency; E78.5 Hyperlipidemia, unspecified; Z20.828 Contact with and (suspected) exposure to other viral communicable diseases; G89.29 Other chronic pain; R27.0 Ataxia, unspecified
CPT/HCPCS: 93005; 93306; 95819; 85025 ×2; 80048 ×2; 36415; 83735; 81025; 85610; 80061; 82947; 80307 ×8; 85730; 84443; 81003; 83036; 84439; 70450; 71045; 93880; 70551; 70544; 97112; 97116 ×2; 97162; 97530; 99285; U0003; J1650 ×3

== ENCOUNTER 2020-12-21 16:48 | Emergency (ER) | payer OTHER ==
[2020-12-21 18:31] LABS: Urine Blood Negative (Negative); Urine Glucose Negative (Negative); Urine Protein Negative (Negative); Urine Specific Gravity 1.025 (1.005-1.030)
[2020-12-21 19:42] LABS: Absolute Lymphocytes (CBC) 0.9 K/uL (0.7-4.9); Basophils % 0.4 % (0-1.3); Lymphocytes % 13.7 % (15.3-44.8); MPV 8.9 fL (7.6-11.3); RBC Red Blood Cell Count 4.32 M/uL (3.86-4.86)
[2020-12-21] MEDS ORDERED: ONDANSETRON 4 MG/2 ML VIAL ONE (19:50)
[2020-12-21] MEDS ORDERED: KETOROLAC 30 MG/ML INJ ONE (19:50)
[2020-12-21] MEDS ORDERED: NA CHLORIDE 0.9% 1,000 ML ONE (19:50)
[2020-12-21 19:53] LABS: BUN Blood Urea Nitrogen 8 mg/dL (7-18); Bicarbonate 25 mmol/L (21-32); Glucose Level 84 mg/dL (74-106); Potassium 4.1 mmol/L (3.5-5.1); Sodium Level 140 mmol/L (136-145)
--- NOTE | 2020-12-21 20:21 | RAD REPORT ---
EXAM DESCRIPTION: CT - Abdomen Pelvis W Contrast - 12/21/2020 7:47 pm CLINICAL HISTORY: ABD PAIN COMPARISON: No comparisons TECHNIQUE: Biphasic, helical CT imaging of the abdomen and pelvis was performed following 100 ml non -ionic IV contrast. No oral contrast was given. All CT scans are performed using dose optimization technique as appropriate and may include automated exposure control or mA/KV adjustment according to patient size. FINDINGS: No suspicious findings in the lung bases. The liver, spleen, and pancreas show no suspicious findings. Gallbladder and biliary tree are also wi thout suspicious finding. Symmetric renal function is seen with no hydronephrosis or suspicious renal mass. No pyelonephritis o r acute parenchymal process. No bladder abnormalities. No adrenal abnormalities. IUD is in place appe aring well positioned in the uterus. No ovarian abnormality suspected. No fallopian tube dilatation i dentifiable. No gastric dilatation or wall thickening. No dilated small bowel loops. There are multiple fluid-fill ed mid and distal small bowel loops. Multiple mesenteric lymph nodes are seen in the central abdomen. The appendix is identified and normal. No acute colon finding. No free air or pneumatosis. Free fluid in the cul de sac and adnexa within limits of normal. No fernando ia, mass or bulky lymphadenopathy. No suspicious bony findings. IMPRESSION: Patient shows mesenteric adenitis or nonspecific enteritis pattern. No appendicitis. No acute or BRUSH FINISHER finding.
--- NOTE | 2020-12-21 20:27 | ER ---
Nurse's Notes [facility] Name: Yvonne Peterson Age: 30 yrs Sex: Female : 1990 Arrival Date: 12/21/2020 Time: 16:48 Bed 28 Private MD: Diagnosis: Generalized abdominal pain Presentation: 12/21 17:19 Chief complaint: Patient states: R sided lower abdominal pain since earlier today, ph nausea, denies fever, V/D, denies urinary symptoms. Coronavirus screen: Client denies travel out of the [place] in the last 14 days. Ebola Screen: No symptoms or risks identified at this time. Initial Sepsis Screen: Does the patient meet any 2 criteria? No. Patient's initial sepsis screen is negative. Initial Sepsis Screen: Does the patient have a suspected source of infection? No. Patient's initial sepsis screen is negative. Risk Assessment: Do you want to hurt yourself or someone else? Patient reports no desire to harm self or others. Onset of symptoms was December 21, 2020. 17:19 Method Of Arrival: Ambulatory 17:19 Acuity: EVANGELINA 3 ph Historical: - Allergies: 17:22 PENICILLINS; ph - PSHx: 17:22 None; ph - Immunization history:: Adult Immunizations unknown. - Social history:: Smoking status: Patient denies any tobacco usage or history of. Screenin:26 Abuse screen: Denies threats or abuse. Nutritional screening: No deficits noted. em Tuberculosis screening: No symptoms or risk factors identified. Fall Risk None identified. Assessment: 19:25 General: Appears in no apparent distress. uncomfortable, Behavior is calm, cooperative, em appropriate for age, Denies fever. Pain: Complains of pain in left lower quadrant and right lower quadrant Pain currently is 7 out of 10 on a pain scale. Pain began 1 day ago. Neuro: Level of Consciousness is awake, alert, obeys commands, Oriented to person, place, time, situation. Cardiovascular: Capillary refill < 3 seconds Patient's skin is warm and dry. Respiratory: Airway is patent Respiratory effort is even, unlabored, Respiratory pattern is regular, symmetrical. GI: Abdomen is flat, Bowel sounds present X 4 quads. Abd is soft and non tender X 4 quads. Patient currently denies nausea, vomiting. : Denies burning with urination. Derm: Skin is intact, is healthy with good turgor, Skin is pink, warm \T\ dry. Musculoskeletal: Capillary refill < 3 seconds, Range of motion: intact in all extremities. Vital Signs: 17:19 BP 114 / 75; Pulse 93; Resp 18; Pulse Ox 99% on R/A; Weight 63.5 kg; Height 5 ft. 2 in. ph (157.48 cm); 17:19 Temp 98.3; ph 17:19 Body Mass Index 25.61 (63.50 kg, 157.48 cm) ph ED Course: 16:48 Patient arrived in ED. ds1 17:22 Triage completed. ph 17:23 Arm band placed on Patient placed in waiting room, Patient notified of wait time. ph 17:27 April Walker [facility]C [facility]. kb 17:27 Pardeep Barnett MD is Attending Physician. kb 19:18 Freddie Cochran, RN is Primary Nurse. em 19:30 Initial lab(s) drawn, by me, sent to lab. Inserted saline lock: 20 gauge in left em antecubital area, using aseptic technique. Blood collected. 19:37 Patient has correct armband on for positive identification. Placed in gown. Side rails em up X2. 19:47 CT Abd/Pelvis - IV Contrast Only In Process Unspecified. EDMS 20:43 No provider procedures requiring assistance completed. IV discontinued, intact, ap3 bleeding controlled, No redness/swelling at site. Pressure dressing applied. Administered Medications: 19:33 Drug: Zofran (Ondansetron) 4 mg Route: IVP; Site: left antecubital; em 20:31 Follow up: Response: No adverse reaction; Nausea is decreased ap3 19:33 Drug: NS 0.9% 1000 ml Route: IV; Rate: 1000 ml; Site: left antecubital; em 20:44 Follow up: Response: No adverse reaction; IV Status: Completed infusion ap3 19:35 Drug: TORadol - (ketorolac) 15 mg Route: IVP; Site: left antecubital; em 20:30 Follow up: Response: No adverse reaction; Pain is decreased ap3 Outcome: 20:26 Discharge ordered by . kb 20:43 Discharged to home ambulatory, with family. ap3 20:43 Condition: good 20:43 Discharge instructions given to patient, Instructed on discharge instructions, follow up and referral plans. medication usage, Demonstrated understanding of instructions, follow-up care, medications, Prescriptions given X 2. 20:54 Patient left the ED. ap3 Signatures: Dispatcher [employer] April Martinez, PICK UP TRUCK DRIVER-C PICK UP TRUCK DRIVER-Freddie Salinas, RN Tiffany Silva ds1 Vianney Peterson RN RN ph Prokisch, Amanda, RN RN ap3
--- NOTE | 2020-12-21 20:27 | EDPHYS ---
Physician Documentation [facility] Name: Yvonne Peterson Age: 30 yrs Sex: Female : 1990 Arrival Date: 12/21/2020 Time: 16:48 Bed 28 Private MD: ED Physician Pardeep Barnett HPI: 12/21 19:30 This 30 yrs old Black Female presents to ER via Ambulatory with complaints of Abdominal kb Pain, Side Pain. 19:30 The patient presents with abdominal pain right lower quadrant. Onset: The kb symptoms/episode began/occurred this morning. The symptoms do not radiate. Associated signs and symptoms: Pertinent positives: fever, nausea. The symptoms are described as constant. Modifying factors: The symptoms are alleviated by nothing, the symptoms are aggravated by pressure. Severity of pain: At its worst the pain was moderate in the emergency department the pain is unchanged. The patient has not experienced similar symptoms in the past. The patient has not recently seen a physician. Historical: - Allergies: 17:22 PENICILLINS; ph - PSHx: 17:22 None; ph - Immunization history:: Adult Immunizations unknown. - Social history:: Smoking status: Patient denies any tobacco usage or history of. ROS: 19:31 Respiratory: Negative for shortness of breath, cough, wheezing, and pleuritic chest kb pain. 19:31 Constitutional: Positive for fever. 19:31 Abdomen/GI: Positive for abdominal pain, nausea, Negative for vomiting, diarrhea. 19:31 All other systems are negative. Exam: 19:31 Constitutional: This is a well developed, well nourished patient who is awake, alert, kb and in no acute distress. Head/Face: Normocephalic, atraumatic. ENT: Moist Mucous membranes Cardiovascular: Regular rate and rhythm with a normal S1 and S2. No gallops, murmurs, or rubs. No pulse deficits. Respiratory: Respirations even and unlabored. No increased work of breathing, no retractions or nasal flaring. Skin: Warm, dry with normal turgor. Normal color. MS/ Extremity: Pulses equal, no cyanosis. Neurovascular intact. Full, normal range of motion. Neuro: Awake and alert, GCS 15, oriented to person, place, time, and situation. Moves all extremities. Normal gait. Psych: Awake, alert, with orientation to person, place and time. Behavior, mood, and affect are within normal limits. 19:31 Abdomen/GI: Inspection: abdomen appears normal, Bowel sounds: normal, in all quadrants, Palpation: soft, in all quadrants, mild abdominal tenderness, in the right lower quadrant and left lower quadrant. Vital Signs: 17:19 BP 114 / 75; Pulse 93; Resp 18; Pulse Ox 99% on R/A; Weight 63.5 kg; Height 5 ft. 2 in. ph (157.48 cm); 17:19 Temp 98.3; ph 17:19 Body Mass Index 25.61 (63.50 kg, 157.48 cm) ph MDM: 17:27 Patient medically screened. kb 19:31 Data reviewed: vital signs, nurses notes. Data interpreted: Pulse oximetry: on room air kb is 99 %. Interpretation: normal. 20:26 Counseling: I had a detailed discussion with the patient and/or guardian regarding: the kb historical points, exam findings, and any diagnostic results supporting the discharge/admit diagnosis, lab results, radiology results, the need for outpatient follow up, a family practitioner, to return to the emergency department if symptoms worsen or persist or if there are any questions or concerns that arise at home. 12/21 17:28 Order name: Basic Metabolic Panel; Complete Time: 19:59 kb 12/21 17:28 Order name: CBC with Diff; Complete Time: 19:51 kb 02 17:28 Order name: CT Abd/Pelvis - IV Contrast Only; Complete Time: 20:25 kb 02 18:31 Order name: Urine Dipstick-Ancillary EDMS 12/21 18:34 Order name: Urine --Ancillary (enter results) bd 12/21 17:28 Order name: IV Saline Lock; Complete Time: 19:36 kb 12/21 17:28 Order name: Labs collected and sent; Complete Time: 19:36 kb 12/21 17:28 Order name: Urine Dipstick-Ancillary (obtain specimen); Complete Time: 19:36 kb 12/21 17:28 Order name: Urine Test (obtain specimen); Complete Time: 19:38 kb Administered Medications: 19:33 Drug: Zofran (Ondansetron) 4 mg Route: IVP; Site: left antecubital; em 20:31 Follow up: Response: No adverse reaction; Nausea is decreased ap3 19:33 Drug: NS 0.9% 1000 ml Route: IV; Rate: 1000 ml; Site: left antecubital; em 20:44 Follow up: Response: No adverse reaction; IV Status: Completed infusion ap3 19:35 Drug: TORadol - (ketorolac) 15 mg Route: IVP; Site: left antecubital; em 20:30 Follow up: Response: No adverse reaction; Pain is decreased ap3 Disposition: 12/21/20 20:26 Discharged to Home. Impression: Generalized abdominal pain. - Condition is Stable. - Discharge Instructions: Abdominal Pain, Adult, [id number]. - Prescriptions for Bentyl 20 mg Oral Tablet - take 1 tablet by ORAL route every 6 hours As needed; 20 tablet. Zofran 4 mg Oral Tablet - take 1 tablet by ORAL route every 6 hours As needed; 20 tablet. - Medication Reconciliation Form, Thank You Letter, Antibiotic Education, Prescription Opioid Use form. - Follow up: Emergency Department; When: As needed; Reason: Worsening of condition. Follow up: Private Physician; When: 2 - 3 days; Reason: Recheck today's complaints, Continuance of care, Re-evaluation by your physician. Signatures: Dispatcher [employer] April Martinez, ANDRÉS-C WIRE SPIRAL BINDER-Freddie Salinas, RN RN Vianney Peterson RN RN Vivian Carvalho RN RN ap3 Corrections: (The following items were deleted from the chart) 19:31 19:30 Constitutional: Negative for fever, chills, and weight loss, kb kb 20:54 20:26 12/21/2020 20:26 Discharged to Home. Impression: Generalized abdominal pain. ap3 Condition is Stable. Forms are Medication Reconciliation Form, Thank You Letter, Antibiotic Education, Prescription Opioid Use. Follow up: Emergency Department; When: As needed; Reason: Worsening of condition. Follow up: Private Physician; When: 2 - 3 days; Reason: Recheck today's complaints, Continuance of care, Re-evaluation by your physician. kb
[2020-12-21 21:02] VITALS: BP 114/75; TEMP 98.3; O2SAT 99
[2020-12-21 22:08] LABS: Urine Specific Gravity/Preg 1.025 (1.005-1.030)
== END 2020-12-21 20:54 | disposition home or self-care (01) ==
LOC: ER 16:48
DX: R10.84 Generalized abdominal pain (principal); Z88.0 Allergy status to penicillin
CPT/HCPCS: 85025; 80048; 36415; 81025; 81003; 74177; Q9967; J7030; J2405; 82565; 96361; 96374; 96375; 99284